=== PATIENT | male | born 1950 | race Caucasian/White ===

== ENCOUNTER 2022-02-26 07:54 | Emergency (ER) | payer MEDICARE, OTHER ==
[~2022-02-26] VITALS: Ht 165.1 cm; Wt 81.8 kg
[2022-02-26] MEDS ORDERED: ONDANSETRON HCL 4 MG/2 ML VIAL IVP ONE (08:45)
[2022-02-26] MEDS ORDERED: SODIUM CHLORIDE 0.9% 1,000 ML IV ONE (08:45)
[2022-02-26] MEDS ORDERED: KETOROLAC TROMETHAMINE 30 MG/ML VIAL IVP ONE (08:45)
[2022-02-26 08:57] LABS: BASOPHILS % (AUTO) 0.9 % (0.0-2.0); EOSINOPHILS % (AUTO) 4.5 % (1.0-6.0); HEMATOCRIT 45.6 % (41-53); HEMOGLOBIN 15.9 g/dL (13.5-17.5); LYMPHOCYTES # (AUTO) 0.9 K/uL (1.0-4.8); LYMPHOCYTES % (AUTO) 20.2 % (22.0-44.0); MEAN CORPUSCULAR HEMOGLOBIN 31.7 pg (26.0-34.0); MEAN CORPUSCULAR HGB CONC 34.9 G/dL (31.0-37.0); MEAN CORPUSCULAR VOLUME 91 fL (80-100); MONOCYTES # (AUTO) 0.3 K/uL (0.1-1.0); MONOCYTES % (AUTO) 6.5 % (2.0-9.0); NEUTROPHILS % (AUTO) 67.9 % (40.0-70.0); PLATELET COUNT (AUTO) 163 K/uL (150-450); RED BLOOD CELL COUNT(AUTO) 5.01 MIL/uL (4.50-5.90); RED CELL DISTRIBUTION WIDTH 13.6 % (11.5-14.5)
[2022-02-26 09:17] LABS: ANION GAP 7 mmol/L (8-16); CALCIUM, TOTAL 8.6 mg/dL (8.8-10.5); CARBON DIOXIDE 27 mmol/L (22-29); CHLORIDE 106 mmol/L (98-107); CREATININE 0.75 mg/dL (0.60-1.30); GLUCOSE,RANDOM 118 mg/dL (70-110); POTASSIUM 3.8 mmol/L (3.5-5.1); SODIUM SERUM 140 mmol/L (136-145); UREA NITROGEN, BLOOD 16 mg/dL (7-18)
[2022-02-26 09:20] LABS: GLOMERULAR FILTR. RATE CALC > 60 mL/min (>60)
[2022-02-26 09:52] VITALS: BP 125/66
[2022-02-26 09:57] LABS: APPEARANCE,URINE HAZY (CLEAR); BILIRUBIN,URINE NEGATIVE (NEGATIVE); GLUCOSE, URINE (UA) TRACE mg/dL (NEGATIVE); KETONES,URINE TRACE mg/dL (NEGATIVE); LEUKOCYTE ESTERASE ,URINE NEGATIVE (NEGATIVE); NITRATE,URINE NEGATIVE (NEGATIVE); OCCULT BLOOD,URINE LARGE (NEGATIVE); PH,URINE 5.5 (5.0-8.0); PROTEIN,URINE 30-70 mg/dL (NEGATIVE); SPECIFIC GRAVITIY, URINE 1.027 (1.003-1.030); UROBILINOGEN,URINE <=1.0 mg/dL (<=1.0)
[2022-02-26 10:18] LABS: RBC,URINE >100 /HPF (0-2); WBC,URINE None Seen /HPF (0-5)
[2022-02-26 10:19] LABS: BACTERIA,URINE Moderate /HPF (None Seen); YEAST,URINE Moderate /HPF (None Seen)
[2022-02-26] MEDS ORDERED: TAMS-13 PO (10:33)
[2022-02-26] MEDS ORDERED: IBUP-2070 PO (10:33)
== END 2022-02-26 10:52 | disposition home or self-care (01) ==
LOC: EMS 07:54
DX: N20.0 Calculus of kidney (principal); Z90.49 Acquired absence of other specified parts of digestive tract
CPT/HCPCS: 99284; 74176; 96374; 96361; 96375; 80048; 81001; 85025; 36415; 87086; J1885; J2405; J7030

== ENCOUNTER 2022-03-10 10:34 | Emergency (ER) | payer MEDICARE ==
[~2022-03-10] VITALS: Ht 170.2 cm; Wt 81.8 kg
[~2022-03-10 10:34] MED LIST: IBUP-2070 PO; TAMS-13 PO
[2022-03-10] MEDS ORDERED: ACETAMINOPHEN 500 MG TABLET PO ONE (11:15)
[2022-03-10 13:08] VITALS: BP 140/80
[2022-03-10] MEDS ORDERED: ACET-66 PO (13:16)
[2022-03-10] MEDS ORDERED: IBUP-1554 PO (13:16)
== END 2022-03-10 13:32 | disposition home or self-care (01) ==
LOC: EMS 10:46
DX: S13.4XXA Sprain of ligaments of cervical spine, initial encounter (principal); S46.911A Strain of unspecified muscle, fascia and tendon at shoulder and upper arm level, right arm, initial encounter; F10.20 Alcohol dependence, uncomplicated; K81.9 Cholecystitis, unspecified; V49.40XA Driver injured in collision with unspecified motor vehicles in traffic accident, initial encounter; Y93.89 Activity, other specified; Y92.89 Other specified places as the place of occurrence of the external cause; Y99.8 Other external cause status; Z90.49 Acquired absence of other specified parts of digestive tract
CPT/HCPCS: 70450; 72125; 99284